=== PATIENT | female | born 1995 | race African-American/Black ===

== ENCOUNTER 2017-02-01 09:31 | Emergency (ER) | payer OTHER ==
[~2017-02-01] VITALS: Ht 170.2 cm; Wt 72.6 kg
[~2017-02-01 09:31] MED LIST: AMOXICILLIN 50500 M1 PO; APAP/CODEINE ELI5 M1 OR; BACTRIM DS TAB1 EACH PO; BIRTH CONTROL PATCH; DEPO-PROVE150 MG/1 M; FLAGYL500 MG PO; MONO-LINYAH1 EACH PO; NOHOMEMEDICATIONS; PERCOCET 5-3251 EACH PO; PERIDEX 0.12%473 M1 SWISH&SPIT
[2017-02-01 10:34] LABS: ABSOLUTE NEUTROPHILS 7.1 thou/uL (1.4-8.2); BASOPHILS 0.7 % (0.0-2.0); EOSINOPHILS 1.3 % (0.0-3.0); HEMATOCRIT 37.7 % (37.0-47.0); HEMOGLOBIN 12.7 gm/dL (12.0-15.0); MCH 27.6 pg (26.0-34.0); MCHC 33.6 g/dL (28.0-37.0); MCV 82.2 fL (80.0-100.0); MONOCYTES 6.3 % (1.0-8.0); PLATELET COUNT 249 thou/uL (150-400); POLYS 66.7 % (36.0-66.0); RBC 4.59 mil/uL (4.20-5.00); RDW 14.4 % (10.5-14.5); WBC 10.7 thou/uL (4.0-11.0)
[2017-02-01 10:34] LABS: URINE BILIRUBIN NEGATIVE (Negative); URINE BLOOD NEGATIVE (Negative); URINE COLOR YELLOW; URINE GLUCOSE-RANDOM* NEGATIVE (Negative); URINE KETONES NEGATIVE (Negative); URINE LEUKOCYTES-REFLEX NEGATIVE (Negative); URINE PROTEIN (DIPSTICK) NEGATIVE (Negative); URINE UROBILINOGEN 0.2 E.U./dl (0.2-1.0)
[2017-02-01 10:40] LABS: MANUAL DIFF NO
[2017-02-01 11:11] LABS: CALCIUM 9.4 mg/dL (8.5-10.1); CREATININE 0.8 mg/dL (0.6-1.0); POTASSIUM 3.4 mmol/L (3.5-5.1)
[2017-02-01 11:16] LABS: ALBUMIN 3.8 g/dL (3.4-5.0); TOTAL BILIRUBIN 0.5 mg/dL (<0.1-1.0); TOTAL PROTEIN 7.8 g/dL (6.4-8.2)
[2017-02-01] MEDS ORDERED: BENTYL 20 MG TA20 M1 PO (12:18)
[2017-02-01 12:30] VITALS: BP 132/85
== END 2017-02-01 12:32 | disposition home or self-care (01) ==
LOC: ER 09:31
PROVIDERS: Physician Assistant
DX: R10.31 Right lower quadrant pain (principal); N60.02 Solitary cyst of left breast

== ENCOUNTER 2017-04-09 02:02 | Emergency (ER) | payer OTHER ==
[~2017-04-09] VITALS: Ht 170.2 cm; Wt 72.6 kg
[~2017-04-09 02:02] MED LIST changes: +BENTYL 20 MG TA20 M1 PO
[2017-04-09 02:26] LABS: URINE BILIRUBIN NEGATIVE (Negative); URINE COLOR YELLOW; URINE GLUCOSE-RANDOM* NEGATIVE (Negative); URINE KETONES NEGATIVE (Negative); URINE PROTEIN (DIPSTICK) NEGATIVE (Negative)
[2017-04-09 02:27] LABS: URINE BLOOD TRACE (Negative); URINE LEUKOCYTES-REFLEX NEGATIVE (Negative); URINE UROBILINOGEN 0.2 E.U./dl (0.2-1.0)
[2017-04-09 03:29] LABS: CALCIUM 8.7 mg/dL (8.5-10.1); CREATININE 0.7 mg/dL (0.6-1.0); HEMATOCRIT 34.3 % (37.0-47.0); HEMOGLOBIN 11.5 gm/dL (12.0-15.0); MANUAL DIFF NO; MCH 27.8 pg (26.0-34.0); MCHC 33.3 % (28.0-37.0); MCV 83.5 fL (80.0-100.0); POTASSIUM 3.5 mmol/L (3.5-5.1); RBC 4.12 mil/uL (4.20-5.00); WBC 10.6 thou/uL (4.0-11.0)
[2017-04-09 03:30] LABS: ABSOLUTE NEUTROPHILS 6.9 thou/uL (1.4-8.2); BASOPHILS 0.4 % (0.0-2.0); EOSINOPHILS 3.2 % (0.0-3.0); PLATELET COUNT 234 thou/uL (150-400); POLYS 64.4 % (36.0-66.0); RDW 13.8 % (10.5-14.5)
[2017-04-09 03:31] VITALS: BP 124/85
[2017-04-09 03:33] LABS: ALBUMIN 3.4 g/dL (3.4-5.0); TOTAL BILIRUBIN 0.3 mg/dL (<0.1-1.0); TOTAL PROTEIN 6.9 g/dL (6.4-8.2)
== END 2017-04-09 03:26 | disposition left against medical advice (07) ==
LOC: ER 02:02
PROVIDERS: Emergency Medicine
DX: R10.30 Lower abdominal pain, unspecified (principal); N89.8 Other specified noninflammatory disorders of vagina

== ENCOUNTER 2019-09-05 22:47 | Emergency (ER) | payer OTHER ==
[~2019-09-05] VITALS: Ht 170.2 cm; Wt 81.7 kg
[2019-09-06] MEDS ORDERED: MOBIC15 MG PO (01:49)
[2019-09-06] MEDS ORDERED: CYCLOBENZAPRINE5 MG PO (01:49)
[2019-09-06 01:56] VITALS: BP 140/74
== END 2019-09-06 01:58 | disposition home or self-care (01) ==
LOC: ER 22:47
DX: M54.2 Cervicalgia (principal); M54.6 Pain in thoracic spine; M54.5 Low back pain; V89.2XXA Person injured in unspecified motor-vehicle accident, traffic, initial encounter; Y93.89 Activity, other specified; Y92.89 Other specified places as the place of occurrence of the external cause; Y99.8 Other external cause status